=== PATIENT | female | born 1985 | race Hispanic/Latino ===

== ENCOUNTER → 2021-05-05 | Outpatient (CLI) | payer OTHER | LOC: US 07:59 | PROVIDERS: ATTEND Internal Medicine | DX: R74.8 Abnormal levels of other serum enzymes (principal) | CPT/HCPCS: 76700 ==

== ENCOUNTER → 2025-07-16 | Outpatient (REF) | payer OTHER | LOC: US 11:41 | PROVIDERS: ATTEND Internal Medicine | DX: K29.60 Other gastritis without bleeding (principal) | CPT/HCPCS: 76700 ==